=== PATIENT | female | born 1935 | race Caucasian/White ===

== ENCOUNTER 2017-04-14 04:42 | Emergency (ER) | payer MEDICARE, BC ==
[~2017-04-14] VITALS: Ht 160 cm; Wt 70.5 kg
[~2017-04-14 04:42] MED LIST: ANTIVERT12.5 MG PO; ASPIR 8181 M1 PO; CALCIUM 500 +1 EAC9 PO; CELEXA40 M2 PO; CLARITIN10 M2 PO; COZAAR25 M1 PO; FOSAMAX70 MG PO; IBUPROFEN200 M2 PO; LEVAQUIN750 MG; LEXAPRO10 MG; MULTI VITAMIN1 EAC2 PO; PRAVACHOL40 M1 PO; SECTRAL PO; STOOL SOFTENER50 M1 PO; TYLENOL EXTRA500 M1 PO; WELCHOL625 MG; XANAX0.5 MG PO
[2017-04-14] MEDS ORDERED: XANAX0.5 M1 (04:55)
[2017-04-14] MEDS ORDERED: FOSAMAX70 M1 (04:55)
[2017-04-14] MEDS ORDERED: ERYTHROMYCIN1 GM RIGHT EYE (05:24)
[2017-04-14] MEDS ORDERED: SPACE CHAMBER1 EACH MC (05:24)
[2017-04-14] MEDS ORDERED: VENTOLIN HFA18 G2 PO (05:24)
[2017-04-14] MEDS ORDERED: PREDNISONE20 M1 PO (05:24)
== END 2017-04-14 06:33 ==
LOC: EDMED 04:42
DX: H10.9 Unspecified conjunctivitis (principal); J20.9 Acute bronchitis, unspecified; B34.9 Viral infection, unspecified; I10 Essential (primary) hypertension; Z86.711 Personal history of pulmonary embolism; Z86.718 Personal history of other venous thrombosis and embolism; Z87.891 Personal history of nicotine dependence; Z79.82 Long term (current) use of aspirin; Z79.899 Other long term (current) drug therapy